=== PATIENT | male | born 1970 | race Caucasian/White ===

== ENCOUNTER 2022-10-13 16:32 | Emergency (ER) | payer BC, SELFPAY ==
[2022-10-13 17:07] VITALS: BP 118/78; PULSE 95; RESP 20; TEMP 36.8; O2SAT 99
--- NOTE | 2022-10-13 17:46 | ED.GENADUL_ITS ---
Discharge Plan Disposition Patient Disposition: Home Condition: Stable Discharge Details Chief Complaint: GenMedical Clinical Impression: Abnormal skin growth Primary Care Provider: Rose Marie,Local ED Provider: Joe Marie Discharge Instructions Additional Instructions: Please follow-up with primary care physician and early childhood special educator. Medical Decision Making 52-year-old male presents with chronic wound to distal aspect of third digit of left hand, picks at a callus, has overgrown skin/scar to this region consider component of keloid no evidence of abscess or cellulitis no evidence of bleeding or foreign body. Sealed area with surgical glue. Patient will follow-up with primary care physician and/or early childhood special educator for possible excision if it continues to bother him. HPI General Date/Time Provider Initiated Documentation: 10/13/22 17:30 . HPI Narrative: 52-year-old male presents with chronic wound to tip of third digit of left hand patient picks at a callus at this location and has a scar overgrowth that was bleeding earlier. No fevers chills or systemic signs of illness Related Data Allergies Allergy/AdvReac Type Severity Reaction Status Date / Time coconut Allergy Severe Anaphylaxis Unverified 10/13/22 17:12 Penicillins Allergy Mild Hives Unverified 10/13/22 17:12 General Stated Complaint: GenMedical STEFANIE: 4 Review of Systems Narrative: Review of Systems Constitutional: negative Eyes: negative ENT: negative Cardiovascular: negative Respiratory: negative Gastrointestinal: negative : negative Musculoskeletal: negative Skin: Skin overgrowth on finger Neurologic: negative Psych: negative PFSH All Active Problems (Updated 10/13/22 @ 17:49 by Joe Marie MD) Abnormal skin growth (Acute) Social History Smoking risk assessment performed?: No Exam Narrative Exam Narrative: Physical Examination General: alert, awake, cooperative, resting comfortably, no acute distress Skin: Overgrowth/hypertrophied callus distal tip palmar aspect of third digit of left hand evidence of recent mild bleeding no signs of infection Extremities: Flexion extension of fingers intact warm well perfused sensate Course Vital Signs Vital signs: Vital Signs Temperature 36.8 C 10/13/22 17:07 Pulse 95 H 10/13/22 17:07 Respiratory Rate 20 10/13/22 17:07 Blood Pressure 118/78 10/13/22 17:07 Pulse Oximetry 99 10/13/22 17:07 Temperature 36.8 C 10/13/22 17:07 Pulse 95 H 10/13/22 17:07 Respiratory Rate 20 10/13/22 17:07 Blood Pressure 118/78 10/13/22 17:07 Pulse Oximetry 99 10/13/22 17:07 Oxygen Delivery Method Room Air 10/13/22 17:07 Oxygen Flow Rate 0 10/13/22 17:07 Pain Level 2 10/13/22 17:07
[2022-10-13 17:53] VITALS: RESP 18
== END 2022-10-13 17:56 | disposition home or self-care (01) ==
PROVIDERS: Emergency Provider Emergency Medicine
DX: R23.8 Other skin changes (principal)
CPT/HCPCS: 99281; 99282